=== PATIENT | female | born 1975 | race Caucasian/White ===

== ENCOUNTER 2018-05-16 21:23 | Emergency (ER) | payer OTHER, MEDICAID ==
[~2018-05-16] VITALS: Ht 167.6 cm; Wt 81.6 kg
[2018-05-16 21:30] VITALS: BP_SYST 139
[2018-05-16] MEDS ORDERED: DIPHENHYDRAMINE INJ 50 MG/ML VIAL IVP ONE (21:45)
[2018-05-16] MEDS ORDERED: NACL 0.9% 1,000 ML IV ONE (21:45)
[2018-05-16] MEDS ORDERED: PROCHLORPERAZINE EDISYLATE 10 MG/2 ML VIAL IVP ONE (21:45)
[2018-05-16] MEDS ORDERED: KETOROLAC TROMETHAMINE 30 MG VIAL IVP ONE (23:00)
[2018-05-16 23:18] VITALS: BP_SYST 139
== END 2018-05-16 23:20 | disposition home or self-care (01) ==
LOC: SED 21:23
DX: R51 Headache (principal); R03.0 Elevated blood-pressure reading, without diagnosis of hypertension; Z90.49 Acquired absence of other specified parts of digestive tract; Z90.89 Acquired absence of other organs
CPT/HCPCS: 81002; 81025; 96361; 96374; 96375; 99283; J0780; J1200; J1885; J7030

== ENCOUNTER 2018-12-14 05:10 | Emergency (ER) | payer OTHER, MEDICAID ==
[~2018-12-14] VITALS: Ht 170.2 cm; Wt 70.3 kg
[2018-12-14 05:20] VITALS: BP_SYST 119
[2018-12-14] MEDS ORDERED: MORPHINE 2 MG/ML INJ. SYRINGE IVP ONE (06:00)
[2018-12-14] MEDS ORDERED: KETOROLAC TROMETHAMINE 30 MG VIAL IVP ONE (06:00)
[2018-12-14 06:48] LABS: BILIRUBIN,URINE 1+ (NEGATIVE); BLOOD, URINE 3+ (NEGATIVE); CLARITY/URINE CLEAR (CLEAR); COLOR,URINE YELLOW (YELLOW); GLUCOSE,URINE NEGATIVE (NEGATIVE); KETONES,URINE NEGATIVE (NEGATIVE); LEUKOCYTE ESTERASE ,URINE TRACE (NEGATIVE); NITRITE, URINE NEGATIVE (NEGATIVE); PH,URINE 5.5 (5.0-8.0); PROTEIN URINE NEGATIVE (NEGATIVE); UROBILINOGEN,URINE 0.2 (0.2-1.0)
[2018-12-14 06:53] LABS: INR 0.9 (0.8-1.2); PROTHROMBIN TIME 9.4 SECS (9.5-12.5)
[2018-12-14 07:01] LABS: BACTERIA,URINE FEW /HPF (None Seen); RBC,URINE 20-50 /HPF (0-3)
[2018-12-14 07:09] LABS: BASOPHILS # (AUTO) 0.1 K/uL (0.0-0.2); BASOPHILS % (AUTO) 0.7 % (0.0-2.0); EOSINOPHILS # (AUTO) 0.3 K/uL (0.0-0.4); EOSINOPHILS % (AUTO) 3.3 % (0.0-4.0); HEMATOCRIT 36.3 % (36-48); HEMOGLOBIN 12.6 g/dL (12.0-16.0); LYMPHOCYTES # (AUTO) 1.9 K/uL (1.0-5.5); LYMPHOCYTES % (AUTO) 21.4 % (20.5-51.5); MEAN CORPUSCULAR HEMOGLOBIN 32 pg (27-31); MEAN CORPUSCULAR HGB CONC 35 % (32-36); MEAN CORPUSCULAR VOLUME 93 fL (79.0-98.0); MONOCYTES # (AUTO) 0.5 K/uL (0.0-1.0); MONOCYTES % (AUTO) 5.3 % (1.7-9.3); NEUTROPHILS % (AUTO) 69.3 % (40.0-70.0); PLATELET COUNT (AUTO) 291 K/uL (130-430); RED BLOOD CELL COUNT(AUTO) 3.92 MIL/uL (4.2-6.2); RED CELL DISTRIBUTION WIDTH 12.9 % (9.0-15.0); WHITE BLOOD COUNT (AUTO) 8.7 K/uL (4.8-10.8)
[2018-12-14 07:21] LABS: CREATININE 0.77 mg/dL (0.55-1.30)
[2018-12-14 07:22] LABS: ALBUMIN 3.1 g/dL (3.4-4.8); TOTAL BILIRUBIN 0.2 mg/dL (0.0-1.0)
[2018-12-14 08:49] LABS: CALCIUM 8.1 mg/dL (8.4-11.0)
[2018-12-14 09:05] VITALS: BP_SYST 118
== END 2018-12-14 09:05 | disposition home or self-care (01) ==
LOC: SED 05:10
DX: N93.9 Abnormal uterine and vaginal bleeding, unspecified (principal)
CPT/HCPCS: 36415; 76830; 76857; 80053; 81000; 81025; 83690; 85025; 85610; 85730; 96374; 96375; 99284; J1885; J2270

== ENCOUNTER 2019-10-05 11:53 | Emergency (ER) | payer MEDICAID, OTHER ==
[~2019-10-05] VITALS: Ht 167.6 cm; Wt 61.2 kg
[2019-10-05 11:55] VITALS: BP_SYST 144
[2019-10-05] MEDS ORDERED: EPINEPHrine 1 MG/ML AMP IM ONE (12:15)
[2019-10-05] MEDS ORDERED: LORATADINE 10 MG TABLET PO ONE (12:15)
[2019-10-05] MEDS ORDERED: PREDNISONE 20 MG TABLET PO ONE (12:15)
[2019-10-05 12:25] VITALS: BP_SYST 144
== END 2019-10-05 12:25 | disposition home or self-care (01) ==
LOC: SED 11:53
DX: L50.9 Urticaria, unspecified (principal)
CPT/HCPCS: 96372; 99283; J0171; J7512

== ENCOUNTER 2020-08-13 11:27 | Emergency (ER) | payer MEDICAID ==
[~2020-08-13] VITALS: Ht 167.6 cm; Wt 63.5 kg
[2020-08-13 11:37] VITALS: BP_SYST 146
[2020-08-13] MEDS ORDERED: ONDANSETRON HCL 4 MG/2 ML VIAL IVP ONE (12:00)
[2020-08-13] MEDS ORDERED: NACL 0.9% 1,000 ML IV ONE (12:00)
[2020-08-13] MEDS ORDERED: METOCLOPRAMIDE HCL 10 MG/2 ML VIAL IVP ONE (12:00)
[2020-08-13 12:10] LABS: BILIRUBIN,URINE NEGATIVE (NEGATIVE); BLOOD, URINE 1+ (NEGATIVE); CLARITY/URINE CLEAR (CLEAR); COLOR,URINE YELLOW (YELLOW); GLUCOSE,URINE NEGATIVE (NEGATIVE); KETONES,URINE NEGATIVE (NEGATIVE); LEUKOCYTE ESTERASE ,URINE NEGATIVE (NEGATIVE); NITRITE, URINE NEGATIVE (NEGATIVE); PH,URINE 8.5 (5.0-8.0); PROTEIN URINE TRACE (NEGATIVE); UROBILINOGEN,URINE 0.2 (0.2-1.0)
[2020-08-13 12:20] LABS: BASOPHILS # (AUTO) 0.1 K/uL (0.0-0.2); BASOPHILS % (AUTO) 0.7 % (0.0-2.0); EOSINOPHILS % (AUTO) 0.2 % (0.0-4.0); HEMATOCRIT 38.7 % (36-48); HEMOGLOBIN 13.3 g/dL (12.0-16.0); LYMPHOCYTES # (AUTO) 0.8 K/uL (1.0-5.5); LYMPHOCYTES % (AUTO) 8.5 % (20.5-51.5); MEAN CORPUSCULAR HEMOGLOBIN 32 pg (27-31); MEAN CORPUSCULAR HGB CONC 34 % (32-36); MEAN CORPUSCULAR VOLUME 92 fL (79.0-98.0); MONOCYTES # (AUTO) 0.3 K/uL (0.0-1.0); MONOCYTES % (AUTO) 2.8 % (1.7-9.3); NEUTROPHILS # (AUTO) 8.7 K/uL (1.8-7.7); NEUTROPHILS % (AUTO) 87.8 % (40.0-70.0); PLATELET COUNT (AUTO) 299 K/uL (130-430); RED BLOOD CELL COUNT(AUTO) 4.19 MIL/uL (4.2-6.2); RED CELL DISTRIBUTION WIDTH 12.6 % (9.0-15.0); WHITE BLOOD COUNT (AUTO) 9.9 K/uL (4.8-10.8)
[2020-08-13 12:25] LABS: CALCIUM 8.4 mg/dL (8.4-11.0); CREATININE 0.78 mg/dL (0.55-1.30); POTASSIUM 3.9 mmol/L (3.5-5.1)
[2020-08-13 12:30] LABS: ALBUMIN 3.5 g/dL (3.4-4.8); TOTAL BILIRUBIN 0.5 mg/dL (0.0-1.0)
[2020-08-13 12:40] LABS: BACTERIA,URINE RARE /HPF (None Seen); WBC,URINE 0-3 /HPF (0-3)
[2020-08-13] MEDS ORDERED: MORPHINE 4 MG INJ. 4 MG/ML VIAL IVP ONE (13:15)
[2020-08-13] MEDS ORDERED: HYDR-4280 PO (14:36)
[2020-08-13] MEDS ORDERED: ONDA-8 TL (14:37)
[2020-08-13 14:52] VITALS: BP_SYST 146
== END 2020-08-13 14:52 | disposition home or self-care (01) ==
LOC: SED 11:27
DX: A09 Infectious gastroenteritis and colitis, unspecified (principal); E86.0 Dehydration; Z79.899 Other long term (current) drug therapy
CPT/HCPCS: 36415; 74021; 80053; 81000; 83690; 85025; 96361; 96374; 96375; 99284; J2270; J2405; J2765; J7030

== ENCOUNTER 2022-03-07 12:29 | Emergency (ER) | payer MEDICAID ==
[~2022-03-07] VITALS: Ht 167.6 cm; Wt 65.8 kg
[~2022-03-07 12:29] MED LIST: HYDR-4280 PO; ONDA-8 TL
[2022-03-07 12:30] VITALS: BP_SYST 139
[2022-03-07 13:28] LABS: BASOPHILS % (AUTO) 0.4 % (0.0-2.0); EOSINOPHILS % (AUTO) 0.2 % (0.0-4.0); HEMATOCRIT 39.8 % (36-48); HEMOGLOBIN 13.5 g/dL (12.0-16.0); LYMPHOCYTES # (AUTO) 1.1 K/uL (1.0-5.5); LYMPHOCYTES % (AUTO) 12.2 % (20.5-51.5); MEAN CORPUSCULAR HEMOGLOBIN 31 pg (27-31); MEAN CORPUSCULAR HGB CONC 34 % (32-36); MEAN CORPUSCULAR VOLUME 92 fL (79.0-98.0); MONOCYTES # (AUTO) 0.3 K/uL (0.0-1.0); MONOCYTES % (AUTO) 3.6 % (1.7-9.3); NEUTROPHILS # (AUTO) 7.8 K/uL (1.8-7.7); NEUTROPHILS % (AUTO) 83.6 % (40.0-70.0); PLATELET COUNT (AUTO) 310 K/uL (130-430); RED BLOOD CELL COUNT(AUTO) 4.33 MIL/uL (4.2-6.2); WHITE BLOOD COUNT (AUTO) 9.4 K/uL (4.8-10.8)
[2022-03-07 13:40] LABS: CALCIUM 8.9 mg/dL (8.4-11.0); CREATININE 0.84 mg/dL (0.55-1.30)
[2022-03-07 13:46] LABS: ALBUMIN 3.8 g/dL (3.4-4.8); TOTAL BILIRUBIN 0.5 mg/dL (0.0-1.0)
== END 2022-03-07 14:37 | disposition left against medical advice (07) ==
LOC: SED 12:29
DX: R11.10 Vomiting, unspecified (principal); F41.9 Anxiety disorder, unspecified; R06.02 Shortness of breath; Z53.21 Procedure and treatment not carried out due to patient leaving prior to being seen by health care provider
CPT/HCPCS: 36415; 80053; 85025

== ENCOUNTER 2022-08-03 09:04 | Emergency (ER) | payer MEDICAID ==
[~2022-08-03] VITALS: Ht 167.6 cm; Wt 61.2 kg
[2022-08-03 09:07] VITALS: BP_SYST 167
[2022-08-03] MEDS ORDERED: LIDOCAINE 1% 10 MG/ML, 20 ML MDV INJ ONE (09:15)
[2022-08-03] MEDS ORDERED: DIPHTH,PERTUSS(ACELL),TET VAC 0.5 ML VIAL (Tdap) I.M. ONE (09:15)
[2022-08-03] MEDS ORDERED: BACITRACIN 1 GM OINT TP ONE (09:15)
--- NOTE | 2022-08-03 09:16 | NUR ---
Patient BIB SELF POST FALL FROM HOME triaged and placed in room 8. report given to LAYTON SARKAR.
--- NOTE | 2022-08-03 09:20 | NUR ---
DR VASQUEZ AT BEDSIDE EXAMINING PATIENT
--- NOTE | 2022-08-03 09:25 | NUR ---
PATIENT BIB FATHER POST FALL WHILE MOVING TRASH CANS. SUSTAINED GREATER THAN 3 INCH LACERATION TO LEFT LATERAL FOREHEAD . DENIES LOC. PAIN 10/04. NO MED HX, NO MEDS.
[2022-08-03] MEDS ORDERED: ONDANSETRON 4 MG ODT TAB ONE (09:38)
[2022-08-03] MEDS ORDERED: ONDANSETRON 4 MG ODT TAB PO ONE (09:45)
[2022-08-03] MEDS ORDERED: HYDROcodone/ACETAMIN 10-325 MG TAB PO ONE (09:45)
--- NOTE | 2022-08-03 09:50 | NUR ---
RADIOLOGY TEAM BEDSIDE, XRAY
--- NOTE | 2022-08-03 09:52 | NUR ---
BACITRACIN AND NON ADHESIVE DRESSING APPLIED AND SECURED WITH TAPE TO SUTURED LACERATION ON LEFT FOREHEAD. PT TOLERATED APPLICATION
--- NOTE | 2022-08-03 09:55 | NUR ---
LOREN SCHUSTER MEDICATED PER MD ORDER
--- NOTE | 2022-08-03 09:59 | NUR ---
PATIENT OUT OF UNIT TO CT
--- NOTE | 2022-08-03 10:35 | NUR ---
REASSESSED PATIENT PAIN AFTER SECURITY SPECIALIST. PATIENT STATES PAIN LEVEL 8/10. MADE AWARE.
[2022-08-03] MEDS ORDERED: TRAM50TA2 PO (10:56)
[2022-08-03] MEDS ORDERED: IBUP-1969 PO (10:56)
[2022-08-03] MEDS ORDERED: MORPHINE 2 MG/ML INJ. SYRINGE IVP ONE (11:00)
--- NOTE | 2022-08-03 11:20 | NUR ---
REAPPLIED DRESSING TO LACERATION. NON ADHESIVE APPLIED OVER WOUND AND SECURED WITH ROLL OF GAUZE WRAPPED CIRCUMFERENTIAL AROUND THE HEAD AND CHIN.
[2022-08-03 11:26] VITALS: BP_SYST 150
--- NOTE | 2022-08-03 11:26 | NUR ---
Patient given written and verbal discharge instructions and verbalizes understanding. ER MD discussed with patient the results and treatment provided. Patient in stable condition. ID arm band removed. IV catheter removed intact and dressing applied, no active bleeding. Rx of Ultram and Ibuoprofen given. Patient educated on pain management and to follow up with PMD. Opportunity for questions provided and answered. Medication side effect fact sheet provided.
[2022-08-05] MEDS ORDERED: NEOM28.37 TP (10:48)
== END 2022-08-03 11:26 | disposition home or self-care (01) ==
LOC: SED 09:04
DX: S01.81XA Laceration without foreign body of other part of head, initial encounter (principal); Z79.899 Other long term (current) drug therapy; W22.8XXA Striking against or struck by other objects, initial encounter; Y93.89 Activity, other specified; Y92.89 Other specified places as the place of occurrence of the external cause; Y99.8 Other external cause status
CPT/HCPCS: 99285; 70450; 76376; 90715; 90471; 12015; Q0162; J2270

== ENCOUNTER 2022-08-14 19:10 | Emergency (ER) | payer MEDICAID ==
[~2022-08-14] VITALS: Ht 167.6 cm; Wt 61.2 kg
[~2022-08-14 19:10] MED LIST changes: +IBUP-1969 PO; +NEOM28.37 TP; +TRAM50TA2 PO
[2022-08-14 19:26] VITALS: BP_SYST 146
--- NOTE | 2022-08-14 19:26 | NUR ---
Triaged and placed patient back to the waiting room. No acute respiratory distress at this time. VSS. Informed patient to notify ED staff for any changes in condition or worsening of symptoms while waiting to be seen by a provider. Patient verbalized understanding.
--- NOTE | 2022-08-14 20:15 | NUR ---
Patient to ER CHAIR for evaluation. Report given to LOREN SPENCE
--- NOTE | 2022-08-14 20:22 | NUR ---
Dr. Busby at bedside examining the patient.
--- NOTE | 2022-08-14 20:33 | NUR ---
DR. ROJAS AT BEDSIDE FOR A SUTURE REMOVAL.
[2022-08-14 20:53] VITALS: BP_SYST 118
--- NOTE | 2022-08-14 21:03 | NUR ---
Patient given written and verbal discharge instructions and verbalizes understanding. ER MD discussed with patient the results and treatment provided. Patient in stable condition. ID arm band removed. IV catheter removed intact and dressing applied, no active bleeding. Rx of none given. Patient educated on pain management and to follow up with PMD. Pain Scale . Opportunity for questions provided and answered. Medication side effect fact sheet provided.
== END 2022-08-14 21:01 | disposition home or self-care (01) ==
LOC: SED 19:10
DX: Z48.02 Encounter for removal of sutures (principal); Z48.00 Encounter for change or removal of nonsurgical wound dressing; Z79.899 Other long term (current) drug therapy
CPT/HCPCS: 99281